=== PATIENT | male | born 1975 | race Asian ===

== ENCOUNTER 2016-11-30 19:27 | Outpatient (CLI) | payer OTHER ==
[~2016-11-30 19:27] MED LIST: AMOX500T5 PO
[2016-11-30] MEDS ORDERED: METFTAB PO (19:56)
[2016-11-30] MEDS ORDERED: DILT30TA24 PO (19:56)
[2016-11-30] MEDS ORDERED: MOBIC15 MG PO (19:57)
[2016-11-30] MEDS ORDERED: CALDOLOR800 MG/8 M IV (19:57)
== END 2016-11-30 19:31 | disposition short-term general hospital (02) ==
LOC: AMB 19:27
DX: R07.89 Other chest pain (principal); I49.8 Other specified cardiac arrhythmias
CPT/HCPCS: A0425; A0427

== ENCOUNTER 2016-11-30 19:35 | Inpatient (IN) | payer OTHER ==
[~2016-11-30] VITALS: Ht 188 cm; Wt 156.1 kg
[2016-11-30] VITALS (12 sets, daily range): BP systolic 73–125; BP diastolic 44–105; TEMP 98.1–98.5; Ht 188 cm; Wt 156.1 kg
[2016-11-30] MEDS ORDERED: DILT30TA24 PO (19:56)
[2016-11-30] MEDS ORDERED: METFTAB PO (19:56)
[2016-11-30] MEDS ORDERED: CALDOLOR800 MG/8 M IV (19:57)
[2016-11-30] MEDS ORDERED: MOBIC15 MG PO (19:57)
[2016-11-30 20:05] LABS: PLATELET COUNT 235 K/uL (142-355)
[2016-11-30 20:12] LABS: POTASSIUM 3.8 mmol/L (3.6-5.2); SODIUM 133 mmol/L (136-145)
[2016-11-30 20:30] LABS: PARTIAL THROMBOPLASTIN TIME 21.3 SECONDS (24.5-33.6)
--- NOTE | 2016-11-30 22:49 | NUR ---
REPORT RECEIVED FROM ED FROM KAUSHAL MCQUEEN RN.
--- NOTE | 2016-11-30 23:00 | NUR ---
PT ARRIVED TO ROOM 1107 AT THIS TIME VIA WHEELCHAIR FROM ED. ADMISSION ASSESSMENT DONE AT THIS TIME. PT IS AWAKE, ALERT, AND ORIENTED. LUNG SOUNDS ARE CLEAR THROUGHOUT BILATERALLY. S1 AND S2 HEART SOUNDS NOTED UPON AUSCULTATION. PT WAS PLACED ON TELEMETRY AT THIS TIME. PT IS RUNNING NSR WITH A RATE OF 72 BPM AT THIS TIME. BOWEL SOUNDS ARE PRESENT IN ALL FOUR QUADRANTS. PT STATES LBM WAS ON 11/29/16. NO EDEMA NOTED TO LOWER EXT. PEDAL PULSES ARE PRESENT AND EQUAL AND BILATERALLY. THERE IS A 18G IV NOTED TO THE RIGHT AC. FLUSHED IV WITH 10 MLS OF NS. IV IS PATENT AND INTACT. PT REMAINS SL AT THIS TIME. PT WAS ORIENTED TO ROOM AND CALL LIGHT AT THIS TIME. BED WAS LOCKED AND IN LOWEST POSITION AT THIS TIME WITH SIDE RAILS UP X2. CALL LLOYD IS WITHIN REACH. WILL CONTINUE TO MONITOR.
--- NOTE | 2016-11-30 23:30 | NUR ---
PT REFUSED ORDERED WILLS CATH PLACEMENT. ATTEMPTED TO CALL DR. VILLELA IN ER. AWAITING FOR MD TO CALL BACK WITH FURTHER ORDERS
[2016-12-01] VITALS: BP 110/67; TEMP 98.1
--- NOTE | 2016-12-01 00:01 | NUR ---
SPOKE TO DR. VILLELA ABOUT ORDER FOR WILLS AND PT'S REFUSAL. OKAYED TO D/C ORDER FOR WILLS
[2016-12-01 04:00] VITALS: BP 116/72; TEMP 98
[2016-12-01 05:47] LABS: POTASSIUM 3.9 mmol/L (3.6-5.2); SODIUM 139 mmol/L (136-145)
[2016-12-01 08:00] VITALS: BP 148/87; TEMP 98.4
[2016-12-01 08:37] LABS: PLATELET COUNT 211 K/uL (142-355)
[2016-12-01 08:51] LABS: POTASSIUM 4.2 mmol/L (3.6-5.2); SODIUM 137 mmol/L (136-145)
[2016-12-01 12:00] VITALS: BP 132/78; TEMP 98.4
[2016-12-01 16:00] VITALS: BP 125/72; TEMP 97.9
--- NOTE | 2016-12-01 19:58 | NUR ---
D/C INSTRUCTIONS GIVEN TO PT AND PT D/C VIA WHEELCHAIR AT THIS TIME
== END 2016-12-01 20:00 | disposition home or self-care (01) | DRG 293 ==
LOC: ED 19:35 → MED/SURG 21:00
PROVIDERS: Family Medicine
DX: I50.9 Heart failure, unspecified (principal); I48.91 Unspecified atrial fibrillation; E66.01 Morbid (severe) obesity due to excess calories; Z91.19 Patient's noncompliance with other medical treatment and regimen; F17.210 Nicotine dependence, cigarettes, uncomplicated; L30.8 Other specified dermatitis; E11.9 Type 2 diabetes mellitus without complications
CPT/HCPCS: 36415; 80048; 80053; 82550; 82553; 83735; 83880; 84484; 85027; 85610; 85730; 93005; 94760; 96360; 96372; 96375; 96376; 99284; J1650; J1940; J3490

== ENCOUNTER 2018-06-03 10:02 | Emergency (ER) | payer OTHER ==
[~2018-06-03] VITALS: Ht 188 cm; Wt 149.7 kg
[~2018-06-03 10:02] MED LIST changes: +CALDOLOR800 MG/8 M IV; +DILT30TA24 PO; +METFTAB PO; +MOBIC15 MG PO
[2018-06-03 10:16] VITALS: TEMP 98.4
[2018-06-03 10:32] LABS: PLATELET COUNT 196 K/uL (142-355)
[2018-06-03 10:59] LABS: POTASSIUM 4.4 mmol/L (3.6-5.2); SODIUM 138 mmol/L (136-145)
[2018-06-03 13:27] VITALS: BP 156/93
== END 2018-06-03 13:27 | disposition home or self-care (01) ==
LOC: ED 10:02
PROVIDERS: Emergency Medicine
DX: I48.91 Unspecified atrial fibrillation (principal); I10 Essential (primary) hypertension
CPT/HCPCS: 36415; 80053; 82550; 82553; 84484; 85027; 93005; 96361; 96374; 96375; 96376; 99284; J3490

== ENCOUNTER 2018-09-29 02:00 | Outpatient (CLI) | payer OTHER ==
[2018-09-29] MEDS ORDERED: LISI5TAB10 PO (03:54)
[2018-09-29] MEDS ORDERED: NOVOLOG FL100 UNIT/M SC (03:55)
[2018-09-29] MEDS ORDERED: COATED ASPIRIN325 MG PO (17:28)
== END 2018-09-29 02:04 | disposition short-term general hospital (02) ==
LOC: AMB 02:00
DX: R07.89 Other chest pain (principal); F10.129 Alcohol abuse with intoxication, unspecified
CPT/HCPCS: A0425; A0427

== ENCOUNTER 2019-03-24 14:35 | Emergency (ER) | payer OTHER ==
[~2019-03-24] VITALS: Ht 188 cm; Wt 158.8 kg
[~2019-03-24 14:35] MED LIST changes: +COATED ASPIRIN325 MG PO; +LISI5TAB10 PO; +NOVOLOG FL100 UNIT/M SC
[2019-03-24 14:51] VITALS: TEMP 97.9
[2019-03-24 15:28] LABS: PLATELET COUNT 201 K/uL (142-355)
[2019-03-24 15:31] LABS: POTASSIUM 4.4 mmol/L (3.6-5.2)
[2019-03-24 18:10] VITALS: BP 156/84
== END 2019-03-24 18:11 | disposition home or self-care (01) ==
LOC: ED 14:35
PROVIDERS: Emergency Medicine
DX: J40 Bronchitis, not specified as acute or chronic (principal); F17.210 Nicotine dependence, cigarettes, uncomplicated; I48.91 Unspecified atrial fibrillation
CPT/HCPCS: 80053; 83880; 85027; 85379; 93005; 94664; 99283

== ENCOUNTER 2019-12-16 10:39 | Inpatient (IN) | payer OTHER ==
[2019-12-16] VITALS (24 sets, daily range): BP systolic 89–213; BP diastolic 66–180; TEMP 98–98.9; Ht 188 cm; Wt 188.2 kg
[~2019-12-16] VITALS: Ht 188 cm; Wt 188.2 kg
[2019-12-16 11:13] LABS: PLATELET COUNT 193 K/uL (142-355)
[2019-12-16 11:23] LABS: POTASSIUM 3.7 mmol/L (3.6-5.2); SODIUM 140 mmol/L (136-145)
[2019-12-16 11:30] LABS: PARTIAL THROMBOPLASTIN TIME 24.2 SECONDS (24.5-33.6)
[2019-12-16] MEDS ORDERED: DILT30TA24 PO (14:38)
[2019-12-16] MEDS ORDERED: PRINIVIL5 MG PO (14:39)
[2019-12-16] MEDS ORDERED: DRIMINATE50 MG PO (14:40)
[2019-12-16] MEDS ORDERED: CIPRO500 MG PO (14:42)
[2019-12-16] MEDS ORDERED: NOVOLIN R100 UNIT/M IM (14:43)
[2019-12-17] VITALS (20 sets, daily range): BP systolic 130–170; BP diastolic 83–116; TEMP 98.9–99.2
[2019-12-17 09:52] LABS: PLATELET COUNT 180 K/uL (142-355)
[2019-12-17] MEDS ORDERED: METO-837 PO (14:25)
[2019-12-17] MEDS ORDERED: FURO40TA93 PO (14:26)
[2019-12-17] MEDS ORDERED: K-TAB20 MEQ PO (14:28)
== END 2019-12-17 16:30 | disposition home or self-care (01) | DRG 313 ==
LOC: ED 10:39 → MED/SURG 11:50 → ICU 17:00
PROVIDERS: Internal Medicine; ADMIT Hospitalist
DX: R07.89 Other chest pain (principal); I48.20 Chronic atrial fibrillation, unspecified; E11.9 Type 2 diabetes mellitus without complications; I10 Essential (primary) hypertension; F10.10 Alcohol abuse, uncomplicated; Z72.0 Tobacco use
CPT/HCPCS: 36415; 80053; 80320; 82550; 83880; 84484; 85027; 85610; 85730; 93005; 94760; 96374; 96375; 99284; J0360; J1160; J1650; J1940; J2270; J3490

== ENCOUNTER 2020-01-28 17:03 | Emergency (ER) | payer OTHER ==
[~2020-01-28] VITALS: Ht 188 cm; Wt 154.2 kg
[~2020-01-28 17:03] MED LIST changes: +CIPRO500 MG PO; +DRIMINATE50 MG PO; +FURO40TA93 PO; +K-TAB20 MEQ PO; +METO-837 PO; +NOVOLIN R100 UNIT/M IM; +PRINIVIL5 MG PO
[2020-01-28 19:04] LABS: PLATELET COUNT 162 K/uL (142-355)
[2020-01-28 19:08] LABS: POTASSIUM 5.1 mmol/L (3.6-5.2)
[2020-01-28 19:40] VITALS: BP 122/85; TEMP 97.9
== END 2020-01-28 19:40 | disposition home or self-care (01) ==
LOC: ED 17:03
PROVIDERS: Family Medicine
DX: K04.7 Periapical abscess without sinus (principal); K02.9 Dental caries, unspecified
CPT/HCPCS: 36415; 80053; 85027; 87651; 96372; 99283; J1885

== ENCOUNTER 2020-06-02 10:28 | Outpatient (CLI) | payer OTHER | END 2020-06-02 19:24 | disposition home or self-care (01) | LOC: RAD 10:28 | PROVIDERS: ATTEND Internal Medicine | DX: E11.9 Type 2 diabetes mellitus without complications (principal); I10 Essential (primary) hypertension; M25.561 Pain in right knee ==

== ENCOUNTER 2021-03-14 13:45 | Emergency (ER) | payer OTHER ==
[~2021-03-14] VITALS: Ht 188 cm; Wt 147.4 kg
[2021-03-14 15:50] VITALS: BP 117/58; TEMP 98.5
== END 2021-03-14 15:50 | disposition home or self-care (01) ==
LOC: ED 13:45
DX: S29.011A Strain of muscle and tendon of front wall of thorax, initial encounter (principal); X58.XXXA Exposure to other specified factors, initial encounter; Y92.89 Other specified places as the place of occurrence of the external cause
CPT/HCPCS: 99282

== ENCOUNTER 2022-03-22 19:28 | Emergency (ER) | payer OTHER ==
[~2022-03-22] VITALS: Ht 188 cm; Wt 143.3 kg
[2022-03-22 19:28] VITALS: TEMP 98
[2022-03-22] MEDS ORDERED: glimepiride PO (19:48)
[2022-03-22] MEDS ORDERED: FURO40TA93 PO (19:49)
[2022-03-22] MEDS ORDERED: ELIQUIS5 MG PO (19:49)
[2022-03-22 20:20] LABS: PLATELET COUNT 161 K/uL (142-355)
[2022-03-22 21:10] VITALS: BP 145/103
== END 2022-03-22 21:10 | disposition home or self-care (01) ==
LOC: ED 19:28
PROVIDERS: Internal Medicine
DX: I48.91 Unspecified atrial fibrillation (principal); Z79.01 Long term (current) use of anticoagulants
CPT/HCPCS: 36415; 80053; 85027; 93005; 99283

== ENCOUNTER 2022-05-08 09:06 | Outpatient (CLI) | payer OTHER ==
[~2022-05-08 09:06] MED LIST changes: +ELIQUIS5 MG PO; +glimepiride PO
== END 2022-05-08 19:14 | disposition home or self-care (01) ==
LOC: RAD 09:06
PROVIDERS: ATTEND Internal Medicine
DX: Z02.71 Encounter for disability determination (principal); E11.9 Type 2 diabetes mellitus without complications; I10 Essential (primary) hypertension; M25.561 Pain in right knee; M25.551 Pain in right hip; M54.59 Other low back pain

== ENCOUNTER 2022-08-01 07:46 | Observation (INO) | payer OTHER ==
[~2022-08-01] VITALS: Ht 188 cm; Wt 144.7 kg
[2022-08-01] VITALS (9 sets, daily range): BP systolic 144–208; BP diastolic 92–139; TEMP 98–99; Ht 188 cm; Wt 144.7 kg
[2022-08-01 08:46] LABS: PLATELET COUNT 185 K/uL (142-355)
[2022-08-01 08:55] LABS: POTASSIUM 3.8 mmol/L (3.6-5.2)
[2022-08-01] MEDS ORDERED: METO-837 PO (14:04)
[2022-08-02 04:00] VITALS: BP 160/90; TEMP 99.6
[2022-08-02 08:00] VITALS: BP 178/109; TEMP 98.5
[2022-08-02 12:00] VITALS: BP 164/124; TEMP 99.5
[2022-08-02 13:00] VITALS: BP 176/80
[2022-08-02 16:00] VITALS: BP 176/128; TEMP 98.5
[2022-08-02 20:00] VITALS: BP 162/101; TEMP 98.4
[2022-08-03] VITALS: BP 165/106; TEMP 98.6
[2022-08-03 04:00] VITALS: BP 168/88; TEMP 98.7
[2022-08-03 08:00] VITALS: BP 174/114; TEMP 98.3
[2022-08-03 10:33] VITALS: BP 117/75; BP 118/82
[2022-08-03] MEDS ORDERED: ELIQUIS5 MG PO (14:46)
[2022-08-03] MEDS ORDERED: METO-837 PO (14:47)
[2022-08-03] MEDS ORDERED: FURO40TA93 PO (14:47)
[2022-08-03] MEDS ORDERED: glimepiride PO (14:47)
== END 2022-08-03 16:29 | disposition home or self-care (01) ==
LOC: ED 07:46 → MED/SURG 10:25
PROVIDERS: Family Medicine; ADMIT Internal Medicine; ATTEND Internal Medicine
DX: I16.0 Hypertensive urgency (principal); I48.20 Chronic atrial fibrillation, unspecified; Z79.01 Long term (current) use of anticoagulants; Z72.0 Tobacco use; E66.01 Morbid (severe) obesity due to excess calories; Z68.41 Body mass index [BMI] 40.0-44.9, adult; I10 Essential (primary) hypertension; E11.65 Type 2 diabetes mellitus with hyperglycemia
CPT/HCPCS: 80053; 80307; 81002; 82948; 84443; 84484; 85027; 93005; 96372; 96374; 96375; 96376; 99221; 99284; G0378; J0360; J3490